=== PATIENT | female | born 1950 | race Caucasian/White ===

== ENCOUNTER 2023-04-14 09:41 | Emergency (ER) | payer MEDICARE ==
[~2023-04-14] VITALS: Ht 162.6 cm; Wt 96.4 kg
[2023-04-14] MEDS ORDERED: CELE1CAP7 (10:00)
[2023-04-14] MEDS ORDERED: HYDR12.55 (10:00)
[2023-04-14] MEDS ORDERED: FURO20TA2 (10:00)
[2023-04-14] MEDS ORDERED: TREL1AER (10:00)
[2023-04-14] MEDS ORDERED: ATOR40TA75 (10:00)
[2023-04-14] MEDS ORDERED: ALBU8.5H (10:00)
[2023-04-14] MEDS ORDERED: LISI10TA22 (10:00)
[2023-04-14] MEDS ORDERED: OMEP40CA5 (10:00)
[2023-04-14] MEDS ORDERED: KETOROLAC 60MG 2ML VIAL IM ONE (11:55)
[2023-04-14] MEDS ORDERED: CYCLOBENZAPRINE 10MG TABLET PO ONE (11:55)
[2023-04-14] MEDS ORDERED: CYCL-707 PO (12:33)
[2023-04-14] MEDS ORDERED: MELO15TA28 PO (12:33)
[2023-04-14 12:45] VITALS: BP 136/79; TEMP 97.4; O2SAT 97
== END 2023-04-14 12:48 | disposition home or self-care (01) ==
LOC: M ED 09:41
DX: M62.830 Muscle spasm of back (principal); E11.9 Type 2 diabetes mellitus without complications; I10 Essential (primary) hypertension; E78.5 Hyperlipidemia, unspecified; C18.9 Malignant neoplasm of colon, unspecified; F17.200 Nicotine dependence, unspecified, uncomplicated; Z79.52 Long term (current) use of systemic steroids; Z79.811 Long term (current) use of aromatase inhibitors; Z79.899 Other long term (current) drug therapy; Z88.8 Allergy status to other drugs, medicaments and biological substances
CPT/HCPCS: 96372; 99283; J1885